=== PATIENT | female | born 1985 ===

== ENCOUNTER 2025-02-12 15:48 | Outpatient (REF) | payer MEDICAID, SELFPAY ==
[2025-02-12 16:11] LABS: Abs Immature Grans 0.00 10^3/uL (0.0-0.06); HCT 38.5 % (36.0-46.0); HGB 12.8 g/dL (11.2-15.7); Immature Grans % 0.0 %; MCH 30.6 pg (27.0-33.0); MCHC 33.2 % (32.0-36.0); MCV 92 fL (80-95); MPV 8.7 fL (8.0-11.0); Platelet Count 401 10^3/uL (130-400); RBC 4.18 10^6/uL (3.93-5.22); RDW 12.6 % (11.7-14.6); RDW-SD 42.2 fL; WBC 6.49 10^3/uL (4.4-10.8)
== END 2025-02-12 15:49 | disposition home or self-care (01) ==
LOC: LBN 15:48
PROVIDERS: PCP Specialist/Technologist Athletic Trainer; Visit Provider Physician Assistant Surgical
DX: J45.909 Unspecified asthma, uncomplicated (principal)
CPT/HCPCS: 82785; 85025

== ENCOUNTER 2025-02-19 01:03 | Outpatient (CLI) | payer MEDICAID, SELFPAY ==
--- NOTE | 2025-02-19 15:00 | DI.RAD_ITS ---
Exam(s) XR CHEST 2V PA LATERAL EXAM: XR CHEST 2V PA LATERAL CLINICAL HISTORY: coughing, asthma-J45.909 TECHNIQUE: 2D digital imaging was performed. Two views. COMPARISON: No exams were available for comparison FINDINGS: HEART: Normal size. Aorta: Not dilated. PULMONARY VASCULATURE: Normal. MEDIASTINUM: Unremarkable. LUNGS: Mildly hyperinflated but clear. PLEURAL SPACE: No pleural effusion or pneumothorax. BONE:Unremarkable for age. SOFT TISSUES: Unremarkable. IMPRESSION: No acute abnormality. DATA REPOSITORY: RADIATION DOSE DELIVERED:
[2025-02-19] MEDS: Inhaler, Assist Device 1 EACH MC (17:14)
[2025-02-19] MEDS: Levalbuterol HFA 15 GM INH 4 PUFF IH (17:15)
--- NOTE | 2025-02-24 13:32 | W.PFT ---
Date of service: 02/19/25 Time of Service: 15:07 Pulmonary Function Test Result Indications: asthma Impression 1. Good patient effort was noted. ATS standards for reproducibility were met. 2. Spirometry showed moderate obstructive lung disease with an FEV1 of 58% (1.43 L) 3. Following the administration of a bronchodilator there was positive response. Post-bronchodilator, FEV1 improved to 87% 4. TLC and RV were elevated, consistent with air-trapping 5. DLCO was normal at 104%
== END 2025-02-19 01:04 | disposition home or self-care (01) ==
PROVIDERS: PCP Specialist/Technologist Athletic Trainer; Visit Provider Internal Medicine Pulmonary Disease
DX: J45.909 Unspecified asthma, uncomplicated (principal); J44.9 Chronic obstructive pulmonary disease, unspecified
CPT/HCPCS: 94060; 94726; 94729; 71046